=== PATIENT | male | born 1945 | race Caucasian/White ===

== ENCOUNTER 2017-09-03 08:09 | Inpatient (IN) | payer OTHER, MEDICAID ==
[~2017-09-03] VITALS: Ht 182.9 cm; Wt 68.0 kg
[2017-09-03] VITALS (17 sets, daily range): BP systolic 92–144
[2017-09-03] MEDS ORDERED: NS 1000 ML BAG IV ONE (08:15)
[2017-09-03] MEDS ORDERED: VANCOMYCIN HCL 1,000 MG in D5W 250 ML IV ONE (08:15)
[2017-09-03] MEDS ORDERED: PIPERACILLIN/TAZO 3.38 GM in D5W 50 ML IV ONE (08:15)
[2017-09-03] MEDS ORDERED: ASPIRIN 300 MG/SUPP.RECT SUPP RC ONE (08:30)
[2017-09-03 09:26] LABS: CALCIUM 9.5 mg/dL (8.4-11.0); CREATININE 0.75 mg/dL (0.55-1.30); POTASSIUM 5.1 mmol/L (3.5-5.1)
[2017-09-03 09:31] LABS: ALBUMIN 1.4 g/dL (3.4-4.8); TOTAL BILIRUBIN 0.2 mg/dL (0.0-1.0)
[2017-09-03 09:39] LABS: WHITE BLOOD COUNT (AUTO) 19.5 K/uL (4.8-10.8)
[2017-09-03 09:40] LABS: HEMATOCRIT 31.7 % (36-54); HEMOGLOBIN 10.1 g/dL (14.0-18.0); MEAN CORPUSCULAR HEMOGLOBIN 27 pg (27-31); MEAN CORPUSCULAR HGB CONC 32 % (32-36); MEAN CORPUSCULAR VOLUME 85 fL (79.0-98.0); RED BLOOD CELL COUNT(AUTO) 3.72 MIL/uL (4.2-6.2); RED CELL DISTRIBUTION WIDTH 15.9 % (9.0-15.0)
[2017-09-03 09:41] LABS: PLATELET COUNT (AUTO) 500 K/uL (130-430)
[2017-09-03 09:47] LABS: PROTHROMBIN TIME 10.3 SECS (9.5-12.5)
[2017-09-03 10:06] LABS: BAND % (MANUAL) 3 % (0-6); BASOPHILS % (MANUAL) 0 % (0-2); EOSINOPHILS % (MANUAL) 0 % (0-7); LYMPHOCYTES % (MANUAL) 2 % (20-46); MONOCYTES % (MANUAL) 2 % (0-11)
[2017-09-03] MEDS ORDERED: VANCOMYCIN HCL 1000 MG/VIAL IV ONE (10:57)
[2017-09-03] MEDS ORDERED: PIPERACILLIN/TAZOBACTAM 3.375 GM/VIAL (ZOSYN) IV ONE (11:28)
[2017-09-03] MEDS ORDERED: HYD10 PO (12:10)
[2017-09-03] MEDS ORDERED: ENOX30DI4 SQ (12:10)
[2017-09-03] MEDS ORDERED: PSYL3.4P6 GT (12:10)
[2017-09-03] MEDS ORDERED: ARTT OP (12:12)
[2017-09-03] MEDS ORDERED: LOM2.5 PO (12:12)
[2017-09-03] MEDS ORDERED: L. A1CAP12 GT (12:13)
[2017-09-03] MEDS ORDERED: LevALBUTEROL HCL 1.25 MG/0.5 ML *CONC.* VIAL.NEB (XOPENEX CONC.) INH PRN (14:15)
[2017-09-03] MEDS: PSYLLIUM HUSK 1 PKT PACKET GT SCH ×2 (15:35→20:32)
[2017-09-03] MEDS: D5/0.45 NS 1,000 ML IV SCH (15:35)
[2017-09-03] MEDS: PIPERACILLIN/TAZO 3.375/DEX-IS 50 ML IV SCH ×2 (17:42→23:42)
[2017-09-03] MEDS: ACETAMINOPHEN 325 MG TABLET PO PRN (17:43)
[2017-09-03] MEDS: DIPHENOXYLATE HCL/ATROP SULF 2.5 MG TAB PO SCH ×2 (17:44→20:32)
[2017-09-03] MEDS: TEARS ARTIFICIAL 15 ML DROPS OP SCH ×2 (17:44→20:32)
[2017-09-03] MEDS: HYDROCORTISONE 10 MG TABLET (CORTEF) PO SCH (17:45)
[2017-09-03] MEDS: LevALBUTEROL HCL 1.25 MG/0.5 ML *CONC.* VIAL.NEB (XOPENEX CONC.) INH SCH (20:11)
[2017-09-03] MEDS: FLUCONAZOLE 100 mg/ NS 50 ML IV SCH (20:30)
[2017-09-04] VITALS (28 sets, daily range): BP systolic 90–129
[2017-09-04 00:25] LABS: BASOPHILS # (AUTO) 0.1 K/uL (0.0-0.2); BASOPHILS % (AUTO) 0.3 % (0.0-2.0); HEMATOCRIT 25.6 % (36-54); LYMPHOCYTES # (AUTO) 0.4 K/uL (1.0-5.5); LYMPHOCYTES % (AUTO) 2.5 % (20.5-51.5); MEAN CORPUSCULAR HEMOGLOBIN 27 pg (27-31); MEAN CORPUSCULAR HGB CONC 32 % (32-36); MEAN CORPUSCULAR VOLUME 83 fL (79.0-98.0); MONOCYTES # (AUTO) 0.6 K/uL (0.0-1.0); MONOCYTES % (AUTO) 3.8 % (1.7-9.3); NEUTROPHILS # (AUTO) 15.9 K/uL (1.8-7.7); NEUTROPHILS % (AUTO) 93.4 % (40.0-70.0); PLATELET COUNT (AUTO) 452 K/uL (130-430); RED BLOOD CELL COUNT(AUTO) 3.09 MIL/uL (4.2-6.2); RED CELL DISTRIBUTION WIDTH 16.2 % (9.0-15.0)
[2017-09-04 00:27] LABS: HEMOGLOBIN 8.3 g/dL (14.0-18.0)
[2017-09-04] MEDS: LevALBUTEROL HCL 1.25 MG/0.5 ML *CONC.* VIAL.NEB (XOPENEX CONC.) INH SCH ×4 (01:25→19:54)
[2017-09-04] MEDS: D5/0.45 NS 1,000 ML IV SCH ×2 (05:09→20:10)
[2017-09-04] MEDS: PIPERACILLIN/TAZO 3.375/DEX-IS 50 ML IV SCH ×4 (05:37→23:39)
[2017-09-04 06:10] LABS: BASOPHILS # (AUTO) 0.3 K/uL (0.0-0.2); BASOPHILS % (AUTO) 1.9 % (0.0-2.0); EOSINOPHILS % (AUTO) 0.3 % (0.0-4.0); HEMATOCRIT 26.3 % (36-54); HEMOGLOBIN 8.4 g/dL (14.0-18.0); LYMPHOCYTES # (AUTO) 0.7 K/uL (1.0-5.5); LYMPHOCYTES % (AUTO) 4.6 % (20.5-51.5); MEAN CORPUSCULAR HEMOGLOBIN 27 pg (27-31); MEAN CORPUSCULAR HGB CONC 32 % (32-36); MEAN CORPUSCULAR VOLUME 83 fL (79.0-98.0); MONOCYTES # (AUTO) 0.5 K/uL (0.0-1.0); MONOCYTES % (AUTO) 3.2 % (1.7-9.3); NEUTROPHILS # (AUTO) 14.7 K/uL (1.8-7.7); PLATELET COUNT (AUTO) 495 K/uL (130-430); RED BLOOD CELL COUNT(AUTO) 3.15 MIL/uL (4.2-6.2); RED CELL DISTRIBUTION WIDTH 16.3 % (9.0-15.0); WHITE BLOOD COUNT (AUTO) 16.2 K/uL (4.8-10.8)
[2017-09-04 06:13] LABS: CALCIUM 8.5 mg/dL (8.4-11.0); CREATININE 0.99 mg/dL (0.55-1.30); POTASSIUM 4.3 mmol/L (3.5-5.1)
[2017-09-04] MEDS: VANCOMYCIN HCL 1,000 MG in NS 250 ML IV SCH (09:44)
[2017-09-04] MEDS: TEARS ARTIFICIAL 15 ML DROPS OP SCH ×4 (09:44→20:21)
[2017-09-04] MEDS: DIPHENOXYLATE HCL/ATROP SULF 2.5 MG TAB PO SCH ×4 (09:44→20:21)
[2017-09-04] MEDS: ENOXAPARIN SODIUM 30 MG/0.3 ML SYRINGE SQ SCH (09:44)
[2017-09-04] MEDS: PSYLLIUM HUSK 1 PKT PACKET GT SCH ×3 (09:45→20:20)
[2017-09-04] MEDS: HYDROCORTISONE 10 MG TABLET (CORTEF) PO SCH ×2 (09:45→17:59)
[2017-09-04] MEDS ORDERED: DEXTROSE 50%-WATER 50 ML DISP.SYRIN IVP PRN ×2 (18:30)
[2017-09-04] MEDS ORDERED: GLUCOSE 15 GM GEL (in 37.5 GM TUBE) PO PRN ×2 (18:30)
[2017-09-04] MEDS: INSULIN REGULAR, HUMAN 100 UNITS/ML, 10 ML VIAL (novoLIN R) SUBCUT PRN (18:35)
[2017-09-04] MEDS: FLUCONAZOLE 100 mg/ NS 50 ML IV SCH (19:50)
[2017-09-04] MEDS: ACETAMINOPHEN 325 MG TABLET PO PRN (20:23)
[2017-09-05] VITALS (35 sets, daily range): BP systolic 87–159
[2017-09-05] MEDS: HYDROcodone/ACETAMIN 5-325 MG TAB (NORCO/ VICODIN) PO PRN (00:25)
[2017-09-05] MEDS: LevALBUTEROL HCL 1.25 MG/0.5 ML *CONC.* VIAL.NEB (XOPENEX CONC.) INH SCH ×4 (01:21→19:56)
[2017-09-05] MEDS: PIPERACILLIN/TAZO 3.375/DEX-IS 50 ML IV SCH ×4 (05:22→23:39)
[2017-09-05 06:17] LABS: BASOPHILS % (AUTO) 0.2 % (0.0-2.0); EOSINOPHILS % (AUTO) 0.4 % (0.0-4.0); LYMPHOCYTES # (AUTO) 0.7 K/uL (1.0-5.5); LYMPHOCYTES % (AUTO) 5.8 % (20.5-51.5); MEAN CORPUSCULAR HEMOGLOBIN 28 pg (27-31); MEAN CORPUSCULAR HGB CONC 34 % (32-36); MEAN CORPUSCULAR VOLUME 82 fL (79.0-98.0); MONOCYTES # (AUTO) 0.5 K/uL (0.0-1.0); MONOCYTES % (AUTO) 4.3 % (1.7-9.3); NEUTROPHILS # (AUTO) 10.9 K/uL (1.8-7.7); NEUTROPHILS % (AUTO) 89.3 % (40.0-70.0); PLATELET COUNT (AUTO) 323 K/uL (130-430); RED BLOOD CELL COUNT(AUTO) 2.47 MIL/uL (4.2-6.2); RED CELL DISTRIBUTION WIDTH 16.3 % (9.0-15.0); WHITE BLOOD COUNT (AUTO) 12.1 K/uL (4.8-10.8)
[2017-09-05 06:26] LABS: HEMATOCRIT 20.2 % (36-54); HEMOGLOBIN 6.9 g/dL (14.0-18.0)
[2017-09-05 07:05] LABS: CALCIUM 7.3 mg/dL (8.4-11.0); CREATININE 1.02 mg/dL (0.55-1.30); POTASSIUM 3.9 mmol/L (3.5-5.1); TOTAL BILIRUBIN 0.2 mg/dL (0.0-1.0)
[2017-09-05] MEDS: DIPHENOXYLATE HCL/ATROP SULF 2.5 MG TAB PO SCH ×4 (08:31→20:07)
[2017-09-05] MEDS: PSYLLIUM HUSK 1 PKT PACKET GT SCH ×3 (08:34→20:06)
[2017-09-05] MEDS: VANCOMYCIN HCL 1,000 MG in NS 250 ML IV SCH (08:34)
[2017-09-05] MEDS: HYDROCORTISONE 10 MG TABLET (CORTEF) PO SCH ×2 (08:34→18:09)
[2017-09-05] MEDS: TEARS ARTIFICIAL 15 ML DROPS OP SCH ×4 (08:36→20:06)
[2017-09-05] MEDS: ENOXAPARIN SODIUM 30 MG/0.3 ML SYRINGE SQ SCH (08:36)
[2017-09-05] MEDS ORDERED: FUROSEMIDE 20 MG/2 ML VIAL IVP ONE (13:30)
[2017-09-05] MEDS: D5/0.45 NS 1,000 ML IV SCH (16:29)
[2017-09-05] MEDS: INSULIN REGULAR, HUMAN 100 UNITS/ML, 10 ML VIAL (novoLIN R) SUBCUT PRN (18:13)
[2017-09-05] MEDS: FLUCONAZOLE 100 mg/ NS 50 ML IV SCH (18:53)
[2017-09-06] VITALS (31 sets, daily range): BP systolic 93–162
[2017-09-06] MEDS: LevALBUTEROL HCL 1.25 MG/0.5 ML *CONC.* VIAL.NEB (XOPENEX CONC.) INH SCH ×4 (00:03→20:29)
[2017-09-06] MEDS ORDERED: LORazepam 2 MG/ML VIAL IVP PRN (02:00)
[2017-09-06] MEDS ORDERED: LORazepam 2 MG/ML VIAL ONE (02:14)
[2017-09-06] MEDS: PIPERACILLIN/TAZO 3.375/DEX-IS 50 ML IV SCH ×3 (05:31→17:38)
[2017-09-06 06:21] LABS: CALCIUM 8.7 mg/dL (8.4-11.0); CREATININE 0.99 mg/dL (0.55-1.30); POTASSIUM 4.5 mmol/L (3.5-5.1)
[2017-09-06 06:24] LABS: BASOPHILS % (AUTO) 0.3 % (0.0-2.0); EOSINOPHILS # (AUTO) 0.1 K/uL (0.0-0.4); EOSINOPHILS % (AUTO) 0.9 % (0.0-4.0); HEMATOCRIT 34.4 % (36-54); HEMOGLOBIN 11.5 g/dL (14.0-18.0); LYMPHOCYTES # (AUTO) 0.7 K/uL (1.0-5.5); LYMPHOCYTES % (AUTO) 4.2 % (20.5-51.5); MEAN CORPUSCULAR HEMOGLOBIN 28 pg (27-31); MEAN CORPUSCULAR HGB CONC 33 % (32-36); MEAN CORPUSCULAR VOLUME 83 fL (79.0-98.0); MONOCYTES # (AUTO) 0.9 K/uL (0.0-1.0); MONOCYTES % (AUTO) 5.3 % (1.7-9.3); NEUTROPHILS # (AUTO) 14.4 K/uL (1.8-7.7); NEUTROPHILS % (AUTO) 89.3 % (40.0-70.0); PLATELET COUNT (AUTO) 396 K/uL (130-430); RED BLOOD CELL COUNT(AUTO) 4.17 MIL/uL (4.2-6.2); RED CELL DISTRIBUTION WIDTH 15.9 % (9.0-15.0); WHITE BLOOD COUNT (AUTO) 16.1 K/uL (4.8-10.8)
[2017-09-06 06:52] LABS: TOTAL IRON BIND. CAPACITY 156 ug/dL (250-450)
[2017-09-06] MEDS: DIPHENOXYLATE HCL/ATROP SULF 2.5 MG TAB PO SCH ×4 (08:40→21:22)
[2017-09-06] MEDS: HYDROCORTISONE 10 MG TABLET (CORTEF) PO SCH ×2 (08:40→18:23)
[2017-09-06] MEDS: PSYLLIUM HUSK 1 PKT PACKET GT SCH ×3 (08:40→21:22)
[2017-09-06] MEDS: ENOXAPARIN SODIUM 30 MG/0.3 ML SYRINGE SQ SCH (08:41)
[2017-09-06] MEDS: TEARS ARTIFICIAL 15 ML DROPS OP SCH ×4 (08:50→21:23)
[2017-09-06] MEDS: INSULIN REGULAR, HUMAN 100 UNITS/ML, 10 ML VIAL (novoLIN R) SUBCUT PRN (17:37)
[2017-09-06] MEDS: FLUCONAZOLE 100 mg/ NS 50 ML IV SCH (18:24)
[2017-09-06] MEDS: D5/0.45 NS 1,000 ML IV SCH (21:23)
[2017-09-07] MEDS: PIPERACILLIN/TAZO 3.375/DEX-IS 50 ML IV SCH ×2 (00:33→06:15)
[2017-09-07] MEDS: LevALBUTEROL HCL 1.25 MG/0.5 ML *CONC.* VIAL.NEB (XOPENEX CONC.) INH SCH ×4 (00:50→19:35)
[2017-09-07 00:52] VITALS: BP_SYST 133
[2017-09-07 06:20] LABS: BASOPHILS % (AUTO) 0.2 % (0.0-2.0); EOSINOPHILS # (AUTO) 0.1 K/uL (0.0-0.4); EOSINOPHILS % (AUTO) 0.6 % (0.0-4.0); HEMATOCRIT 28.5 % (36-54); HEMOGLOBIN 9.7 g/dL (14.0-18.0); LYMPHOCYTES # (AUTO) 0.5 K/uL (1.0-5.5); LYMPHOCYTES % (AUTO) 4.4 % (20.5-51.5); MEAN CORPUSCULAR HEMOGLOBIN 28 pg (27-31); MEAN CORPUSCULAR HGB CONC 34 % (32-36); MEAN CORPUSCULAR VOLUME 82 fL (79.0-98.0); MONOCYTES # (AUTO) 0.7 K/uL (0.0-1.0); MONOCYTES % (AUTO) 5.9 % (1.7-9.3); NEUTROPHILS # (AUTO) 10.3 K/uL (1.8-7.7); NEUTROPHILS % (AUTO) 88.9 % (40.0-70.0); PLATELET COUNT (AUTO) 281 K/uL (130-430); RED BLOOD CELL COUNT(AUTO) 3.46 MIL/uL (4.2-6.2); RED CELL DISTRIBUTION WIDTH 15.4 % (9.0-15.0); WHITE BLOOD COUNT (AUTO) 11.6 K/uL (4.8-10.8)
[2017-09-07 07:01] LABS: CALCIUM 8.3 mg/dL (8.4-11.0); CREATININE 0.98 mg/dL (0.55-1.30); POTASSIUM 4.5 mmol/L (3.5-5.1)
[2017-09-07 08:35] VITALS: BP_SYST 126
[2017-09-07] MEDS: DIPHENOXYLATE HCL/ATROP SULF 2.5 MG TAB PO SCH ×4 (10:01→22:16)
[2017-09-07] MEDS: PSYLLIUM HUSK 1 PKT PACKET GT SCH ×3 (10:01→22:16)
[2017-09-07] MEDS: HYDROCORTISONE 10 MG TABLET (CORTEF) PO SCH ×2 (10:01→17:57)
[2017-09-07] MEDS: ENOXAPARIN SODIUM 30 MG/0.3 ML SYRINGE SQ SCH (10:02)
[2017-09-07] MEDS: TEARS ARTIFICIAL 15 ML DROPS OP SCH ×4 (10:02→22:17)
[2017-09-07] MEDS: HYDROcodone/ACETAMIN 5-325 MG TAB (NORCO/ VICODIN) PO PRN (10:46)
[2017-09-07 12:20] VITALS: BP_SYST 129
[2017-09-07 16:50] VITALS: BP_SYST 125
[2017-09-07] MEDS: FLUCONAZOLE 100 mg/ NS 50 ML IV SCH (18:18)
[2017-09-07 19:00] VITALS: BP_SYST 139
[2017-09-07 20:00] VITALS: BP_SYST 139
[2017-09-07] MEDS: D5/0.45 NS 1,000 ML IV SCH (22:18)
[2017-09-08] VITALS: BP_SYST 140
[2017-09-08] MEDS: LevALBUTEROL HCL 1.25 MG/0.5 ML *CONC.* VIAL.NEB (XOPENEX CONC.) INH SCH ×4 (00:45→19:47)
[2017-09-08 07:05] LABS: BASOPHILS % (AUTO) 0.1 % (0.0-2.0); EOSINOPHILS # (AUTO) 0.1 K/uL (0.0-0.4); EOSINOPHILS % (AUTO) 0.7 % (0.0-4.0); HEMATOCRIT 31.1 % (36-54); HEMOGLOBIN 10.1 g/dL (14.0-18.0); LYMPHOCYTES # (AUTO) 0.7 K/uL (1.0-5.5); LYMPHOCYTES % (AUTO) 5.3 % (20.5-51.5); MEAN CORPUSCULAR HEMOGLOBIN 27 pg (27-31); MEAN CORPUSCULAR HGB CONC 33 % (32-36); MEAN CORPUSCULAR VOLUME 82 fL (79.0-98.0); MONOCYTES # (AUTO) 0.8 K/uL (0.0-1.0); MONOCYTES % (AUTO) 5.9 % (1.7-9.3); NEUTROPHILS # (AUTO) 12.3 K/uL (1.8-7.7); PLATELET COUNT (AUTO) 330 K/uL (130-430); RED BLOOD CELL COUNT(AUTO) 3.81 MIL/uL (4.2-6.2); RED CELL DISTRIBUTION WIDTH 15.6 % (9.0-15.0); WHITE BLOOD COUNT (AUTO) 13.9 K/uL (4.8-10.8)
[2017-09-08 07:16] LABS: ALBUMIN 1.2 g/dL (3.4-4.8); CALCIUM 8.5 mg/dL (8.4-11.0); CREATININE 0.89 mg/dL (0.55-1.30); POTASSIUM 4.1 mmol/L (3.5-5.1); TOTAL BILIRUBIN 0.3 mg/dL (0.0-1.0)
[2017-09-08] MEDS: ENOXAPARIN SODIUM 30 MG/0.3 ML SYRINGE SQ SCH (09:45)
[2017-09-08] MEDS: DIPHENOXYLATE HCL/ATROP SULF 2.5 MG TAB PO SCH ×4 (09:46→21:55)
[2017-09-08] MEDS: HYDROCORTISONE 10 MG TABLET (CORTEF) PO SCH ×2 (09:46→18:27)
[2017-09-08] MEDS: PSYLLIUM HUSK 1 PKT PACKET GT SCH ×3 (09:46→21:55)
[2017-09-08] MEDS: TEARS ARTIFICIAL 15 ML DROPS OP SCH ×4 (09:46→21:55)
[2017-09-08 12:45] VITALS: BP_SYST 140
[2017-09-08 15:25] VITALS: BP_SYST 129
[2017-09-08] MEDS: FLUCONAZOLE 100 mg/ NS 50 ML IV SCH (18:27)
[2017-09-08 20:52] VITALS: BP_SYST 136
[2017-09-08] MEDS: D5/0.45 NS 1,000 ML IV SCH (21:56)
[2017-09-09 00:03] VITALS: BP_SYST 156
[2017-09-09] MEDS: INSULIN REGULAR, HUMAN 100 UNITS/ML, 10 ML VIAL (novoLIN R) SUBCUT PRN ×4 (00:33→23:22)
[2017-09-09] MEDS: LevALBUTEROL HCL 1.25 MG/0.5 ML *CONC.* VIAL.NEB (XOPENEX CONC.) INH SCH ×4 (00:50→20:16)
[2017-09-09 05:06] LABS: FOLATE (FOLIC ACID) 9.1 ng/mL (>3.0)
[2017-09-09 07:38] LABS: HEMATOCRIT 32.8 % (36-54); HEMOGLOBIN 10.8 g/dL (14.0-18.0); MEAN CORPUSCULAR HEMOGLOBIN 27 pg (27-31); MEAN CORPUSCULAR HGB CONC 33 % (32-36); MEAN CORPUSCULAR VOLUME 82 fL (79.0-98.0); PLATELET COUNT (AUTO) 363 K/uL (130-430); RED BLOOD CELL COUNT(AUTO) 3.99 MIL/uL (4.2-6.2); RED CELL DISTRIBUTION WIDTH 15.3 % (9.0-15.0); WHITE BLOOD COUNT (AUTO) 29.1 K/uL (4.8-10.8)
[2017-09-09 08:00] VITALS: BP_SYST 162
[2017-09-09 08:25] LABS: CALCIUM 8.7 mg/dL (8.4-11.0); CREATININE 0.94 mg/dL (0.55-1.30); POTASSIUM 3.9 mmol/L (3.5-5.1)
[2017-09-09] MEDS: ENOXAPARIN SODIUM 30 MG/0.3 ML SYRINGE SQ SCH (08:34)
[2017-09-09] MEDS: ACETAMINOPHEN 325 MG TABLET PO PRN (08:35)
[2017-09-09] MEDS: DIPHENOXYLATE HCL/ATROP SULF 2.5 MG TAB PO SCH ×4 (08:35→21:21)
[2017-09-09] MEDS: PSYLLIUM HUSK 1 PKT PACKET GT SCH ×3 (08:36→21:21)
[2017-09-09] MEDS: HYDROCORTISONE 10 MG TABLET (CORTEF) PO SCH ×2 (08:36→17:50)
[2017-09-09] MEDS: TEARS ARTIFICIAL 15 ML DROPS OP SCH ×4 (08:36→21:21)
[2017-09-09 09:14] VITALS: BP_SYST 162
[2017-09-09 12:30] VITALS: BP_SYST 157
[2017-09-09 14:13] LABS: BAND % (MANUAL) 13 % (0-6); BASOPHILS % (MANUAL) 0 % (0-2); EOSINOPHILS % (MANUAL) 0 % (0-7); LYMPHOCYTES % (MANUAL) 4 % (20-46); MONOCYTES % (MANUAL) 1 % (0-11)
[2017-09-09 15:22] VITALS: BP_SYST 146
[2017-09-09] MEDS: FLUCONAZOLE 100 mg/ NS 50 ML IV SCH (18:28)
[2017-09-09 19:31] LABS: BILIRUBIN,URINE NEGATIVE (NEGATIVE); BLOOD, URINE 2+ (NEGATIVE); CLARITY/URINE HAZY (CLEAR); COLOR,URINE YELLOW (YELLOW); GLUCOSE,URINE TRACE (NEGATIVE); KETONES,URINE NEGATIVE (NEGATIVE); LEUKOCYTE ESTERASE ,URINE 2+ (NEGATIVE); NITRITE, URINE NEGATIVE (NEGATIVE); PROTEIN URINE 1+ (NEGATIVE); UROBILINOGEN,URINE 0.2 (0.2-1.0)
[2017-09-09] MEDS: SULFAMETHOXAZOLE /TRIMETHOPRIM 10 ML in D5W 250 ML IV SCH (21:21)
[2017-09-09 21:27] LABS: RBC,URINE 50-80 /HPF (0-3); WBC,URINE >100 /HPF (0-3)
[2017-09-09 21:28] LABS: BACTERIA,URINE FEW /HPF (None Seen); YEAST,URINE Few /HPF (None Seen)
[2017-09-10] MEDS: ACETAMINOPHEN 325 MG TABLET PO PRN (00:02)
[2017-09-10 01:20] VITALS: BP_SYST 144
[2017-09-10] MEDS: LevALBUTEROL HCL 1.25 MG/0.5 ML *CONC.* VIAL.NEB (XOPENEX CONC.) INH SCH ×4 (01:21→19:54)
[2017-09-10] MEDS: SULFAMETHOXAZOLE /TRIMETHOPRIM 10 ML in D5W 250 ML IV SCH ×3 (06:54→22:14)
[2017-09-10 07:20] LABS: HEMATOCRIT 28.7 % (36-54); HEMOGLOBIN 9.7 g/dL (14.0-18.0); MEAN CORPUSCULAR HEMOGLOBIN 28 pg (27-31); MEAN CORPUSCULAR HGB CONC 34 % (32-36); MEAN CORPUSCULAR VOLUME 81 fL (79.0-98.0); PLATELET COUNT (AUTO) 246 K/uL (130-430); RED BLOOD CELL COUNT(AUTO) 3.53 MIL/uL (4.2-6.2); RED CELL DISTRIBUTION WIDTH 15.6 % (9.0-15.0); WHITE BLOOD COUNT (AUTO) 24.9 K/uL (4.8-10.8)
[2017-09-10 07:46] LABS: CALCIUM 8.9 mg/dL (8.4-11.0); CREATININE 0.88 mg/dL (0.55-1.30); POTASSIUM 3.7 mmol/L (3.5-5.1)
[2017-09-10 08:00] VITALS: BP_SYST 133
[2017-09-10] MEDS: ENOXAPARIN SODIUM 30 MG/0.3 ML SYRINGE SQ SCH (09:25)
[2017-09-10] MEDS: PSYLLIUM HUSK 1 PKT PACKET GT SCH ×3 (09:26→22:14)
[2017-09-10] MEDS: HYDROCORTISONE 10 MG TABLET (CORTEF) PO SCH ×2 (09:26→17:42)
[2017-09-10] MEDS: DIPHENOXYLATE HCL/ATROP SULF 2.5 MG TAB PO SCH ×3 (09:26→16:12)
[2017-09-10 09:32] LABS: BAND % (MANUAL) 20 % (0-6); BASOPHILS % (MANUAL) 0 % (0-2); EOSINOPHILS % (MANUAL) 0 % (0-7); LYMPHOCYTES % (MANUAL) 4 % (20-46); MONOCYTES % (MANUAL) 6 % (0-11)
[2017-09-10] MEDS: TEARS ARTIFICIAL 15 ML DROPS OP SCH ×4 (09:38→22:14)
[2017-09-10 11:31] VITALS: BP_SYST 135
[2017-09-10 15:17] VITALS: BP_SYST 117
[2017-09-10] MEDS: FLUCONAZOLE 100 mg/ NS 50 ML IV SCH (18:02)
[2017-09-10 23:00] VITALS: BP_SYST 120
[2017-09-11 01:09] VITALS: BP_SYST 120
[2017-09-11] MEDS: LevALBUTEROL HCL 1.25 MG/0.5 ML *CONC.* VIAL.NEB (XOPENEX CONC.) INH SCH ×4 (01:37→20:24)
[2017-09-11] MEDS: SULFAMETHOXAZOLE /TRIMETHOPRIM 10 ML in D5W 250 ML IV SCH ×3 (05:46→22:33)
[2017-09-11 06:58] LABS: BASOPHILS % (AUTO) 0.1 % (0.0-2.0); EOSINOPHILS # (AUTO) 0.1 K/uL (0.0-0.4); EOSINOPHILS % (AUTO) 0.3 % (0.0-4.0); HEMATOCRIT 25.1 % (36-54); HEMOGLOBIN 8.5 g/dL (14.0-18.0); LYMPHOCYTES # (AUTO) 0.6 K/uL (1.0-5.5); LYMPHOCYTES % (AUTO) 2.8 % (20.5-51.5); MEAN CORPUSCULAR HEMOGLOBIN 28 pg (27-31); MEAN CORPUSCULAR HGB CONC 34 % (32-36); MEAN CORPUSCULAR VOLUME 82 fL (79.0-98.0); MONOCYTES # (AUTO) 0.8 K/uL (0.0-1.0); MONOCYTES % (AUTO) 3.8 % (1.7-9.3); NEUTROPHILS # (AUTO) 18.8 K/uL (1.8-7.7); PLATELET COUNT (AUTO) 232 K/uL (130-430); RED BLOOD CELL COUNT(AUTO) 3.06 MIL/uL (4.2-6.2); RED CELL DISTRIBUTION WIDTH 15.4 % (9.0-15.0); WHITE BLOOD COUNT (AUTO) 20.3 K/uL (4.8-10.8)
[2017-09-11 07:32] LABS: CALCIUM 8.8 mg/dL (8.4-11.0); CREATININE 0.78 mg/dL (0.55-1.30); POTASSIUM 3.6 mmol/L (3.5-5.1)
[2017-09-11 07:50] VITALS: BP_SYST 111
[2017-09-11] MEDS: PSYLLIUM HUSK 1 PKT PACKET GT SCH ×3 (08:37→22:33)
[2017-09-11] MEDS: TEARS ARTIFICIAL 15 ML DROPS OP SCH ×4 (08:39→22:34)
[2017-09-11] MEDS: ENOXAPARIN SODIUM 30 MG/0.3 ML SYRINGE SQ SCH (08:39)
[2017-09-11] MEDS: HYDROCORTISONE 10 MG TABLET (CORTEF) PO SCH ×2 (08:39→18:07)
[2017-09-11 12:00] VITALS: BP_SYST 140
[2017-09-11] MEDS ORDERED: FUROSEMIDE 40 MG/4 ML VIAL IVP ONE (15:00)
[2017-09-11 16:00] VITALS: BP_SYST 147
[2017-09-11] MEDS ORDERED: DIPHENOXYLATE HCL/ATROP SULF 2.5 MG TAB PO SCH (17:00)
[2017-09-11 17:05] VITALS: BP_SYST 147
[2017-09-11] MEDS: FLUCONAZOLE 100 mg/ NS 50 ML IV SCH (18:07)
[2017-09-11 20:42] VITALS: BP_SYST 137
[2017-09-12 00:31] VITALS: BP_SYST 102
[2017-09-12] MEDS: LevALBUTEROL HCL 1.25 MG/0.5 ML *CONC.* VIAL.NEB (XOPENEX CONC.) INH SCH ×4 (02:10→19:51)
[2017-09-12] MEDS: SULFAMETHOXAZOLE /TRIMETHOPRIM 10 ML in D5W 250 ML IV SCH ×3 (06:46→21:54)
[2017-09-12 06:58] LABS: BASOPHILS % (AUTO) 0.1 % (0.0-2.0); EOSINOPHILS # (AUTO) 0.1 K/uL (0.0-0.4); EOSINOPHILS % (AUTO) 0.6 % (0.0-4.0); HEMATOCRIT 27.8 % (36-54); HEMOGLOBIN 9.5 g/dL (14.0-18.0); LYMPHOCYTES # (AUTO) 0.7 K/uL (1.0-5.5); LYMPHOCYTES % (AUTO) 3.8 % (20.5-51.5); MEAN CORPUSCULAR HEMOGLOBIN 28 pg (27-31); MEAN CORPUSCULAR HGB CONC 34 % (32-36); MEAN CORPUSCULAR VOLUME 81 fL (79.0-98.0); MONOCYTES # (AUTO) 0.7 K/uL (0.0-1.0); MONOCYTES % (AUTO) 3.8 % (1.7-9.3); NEUTROPHILS # (AUTO) 17.1 K/uL (1.8-7.7); NEUTROPHILS % (AUTO) 91.7 % (40.0-70.0); PLATELET COUNT (AUTO) 256 K/uL (130-430); RED BLOOD CELL COUNT(AUTO) 3.43 MIL/uL (4.2-6.2); RED CELL DISTRIBUTION WIDTH 15.2 % (9.0-15.0); WHITE BLOOD COUNT (AUTO) 18.6 K/uL (4.8-10.8)
[2017-09-12 07:17] LABS: CALCIUM 8.4 mg/dL (8.4-11.0); CREATININE 0.86 mg/dL (0.55-1.30); POTASSIUM 3.6 mmol/L (3.5-5.1); TOTAL BILIRUBIN 0.2 mg/dL (0.0-1.0)
[2017-09-12 07:57] VITALS: BP_SYST 130
[2017-09-12] MEDS: PSYLLIUM HUSK 1 PKT PACKET GT SCH ×3 (08:59→21:55)
[2017-09-12] MEDS: HYDROCORTISONE 10 MG TABLET (CORTEF) PO SCH ×2 (08:59→17:50)
[2017-09-12] MEDS: ENOXAPARIN SODIUM 30 MG/0.3 ML SYRINGE SQ SCH (09:00)
[2017-09-12] MEDS: TEARS ARTIFICIAL 15 ML DROPS OP SCH ×4 (09:01→21:55)
[2017-09-12 11:20] VITALS: BP_SYST 140
[2017-09-12 15:40] VITALS: BP_SYST 157
[2017-09-12] MEDS: FLUCONAZOLE 100 mg/ NS 50 ML IV SCH (18:01)
[2017-09-13 00:52] VITALS: BP_SYST 116
[2017-09-13] MEDS: LevALBUTEROL HCL 1.25 MG/0.5 ML *CONC.* VIAL.NEB (XOPENEX CONC.) INH SCH ×4 (01:03→19:38)
[2017-09-13] MEDS: SULFAMETHOXAZOLE /TRIMETHOPRIM 10 ML in D5W 250 ML IV SCH ×3 (05:36→21:10)
[2017-09-13 06:22] LABS: EOSINOPHILS # (AUTO) 0.1 K/uL (0.0-0.4); EOSINOPHILS % (AUTO) 0.8 % (0.0-4.0); HEMATOCRIT 27.5 % (36-54); HEMOGLOBIN 9.3 g/dL (14.0-18.0); LYMPHOCYTES # (AUTO) 0.6 K/uL (1.0-5.5); LYMPHOCYTES % (AUTO) 3.3 % (20.5-51.5); MEAN CORPUSCULAR HEMOGLOBIN 27 pg (27-31); MEAN CORPUSCULAR HGB CONC 34 % (32-36); MEAN CORPUSCULAR VOLUME 81 fL (79.0-98.0); MONOCYTES # (AUTO) 0.6 K/uL (0.0-1.0); MONOCYTES % (AUTO) 3.4 % (1.7-9.3); NEUTROPHILS # (AUTO) 15.9 K/uL (1.8-7.7); NEUTROPHILS % (AUTO) 92.5 % (40.0-70.0); PLATELET COUNT (AUTO) 266 K/uL (130-430); RED CELL DISTRIBUTION WIDTH 15.1 % (9.0-15.0); WHITE BLOOD COUNT (AUTO) 17.2 K/uL (4.8-10.8)
[2017-09-13 06:32] LABS: POTASSIUM 4.1 mmol/L (3.5-5.1)
[2017-09-13 06:33] LABS: CALCIUM 8.7 mg/dL (8.4-11.0); CREATININE 0.81 mg/dL (0.55-1.30)
[2017-09-13 09:19] VITALS: BP_SYST 146
[2017-09-13] MEDS: PSYLLIUM HUSK 1 PKT PACKET GT SCH ×3 (09:22→21:10)
[2017-09-13] MEDS: HYDROCORTISONE 10 MG TABLET (CORTEF) PO SCH ×2 (09:23→17:47)
[2017-09-13] MEDS: TEARS ARTIFICIAL 15 ML DROPS OP SCH ×4 (09:24→21:11)
[2017-09-13] MEDS: ENOXAPARIN SODIUM 30 MG/0.3 ML SYRINGE SQ SCH (09:25)
[2017-09-13 11:12] VITALS: BP_SYST 148
[2017-09-13 15:36] VITALS: BP_SYST 138
[2017-09-13] MEDS: FLUCONAZOLE 100 mg/ NS 50 ML IV SCH (18:08)
[2017-09-14 00:30] VITALS: BP_SYST 124
[2017-09-14] MEDS: LevALBUTEROL HCL 1.25 MG/0.5 ML *CONC.* VIAL.NEB (XOPENEX CONC.) INH SCH ×4 (01:17→19:55)
[2017-09-14] MEDS: SULFAMETHOXAZOLE /TRIMETHOPRIM 10 ML in D5W 250 ML IV SCH ×3 (05:51→21:08)
[2017-09-14 09:00] VITALS: BP_SYST 139
[2017-09-14] MEDS: PSYLLIUM HUSK 1 PKT PACKET GT SCH ×3 (09:40→21:07)
[2017-09-14] MEDS: ENOXAPARIN SODIUM 30 MG/0.3 ML SYRINGE SQ SCH (09:40)
[2017-09-14] MEDS: HYDROCORTISONE 10 MG TABLET (CORTEF) PO SCH ×2 (09:40→17:35)
[2017-09-14] MEDS: TEARS ARTIFICIAL 15 ML DROPS OP SCH ×4 (09:42→21:07)
[2017-09-14 11:15] VITALS: BP_SYST 147
[2017-09-14 12:11] VITALS: BP_SYST 147
[2017-09-14 17:18] VITALS: BP_SYST 144
[2017-09-14 19:52] VITALS: BP_SYST 151
[2017-09-15] VITALS (8 sets, daily range): BP systolic 108–144
[2017-09-15] MEDS: LevALBUTEROL HCL 1.25 MG/0.5 ML *CONC.* VIAL.NEB (XOPENEX CONC.) INH SCH ×4 (01:05→19:36)
[2017-09-15] MEDS: SULFAMETHOXAZOLE /TRIMETHOPRIM 10 ML in D5W 250 ML IV SCH ×3 (05:26→22:25)
[2017-09-15 08:31] LABS: BASOPHILS % (AUTO) 0.2 % (0.0-2.0); EOSINOPHILS % (AUTO) 0.2 % (0.0-4.0); HEMATOCRIT 28.8 % (36-54); HEMOGLOBIN 9.5 g/dL (14.0-18.0); LYMPHOCYTES # (AUTO) 0.8 K/uL (1.0-5.5); LYMPHOCYTES % (AUTO) 3.3 % (20.5-51.5); MEAN CORPUSCULAR HEMOGLOBIN 27 pg (27-31); MEAN CORPUSCULAR HGB CONC 33 % (32-36); MEAN CORPUSCULAR VOLUME 82 fL (79.0-98.0); MONOCYTES % (AUTO) 4.3 % (1.7-9.3); NEUTROPHILS # (AUTO) 21.1 K/uL (1.8-7.7); PLATELET COUNT (AUTO) 289 K/uL (130-430); RED BLOOD CELL COUNT(AUTO) 3.53 MIL/uL (4.2-6.2); RED CELL DISTRIBUTION WIDTH 15.8 % (9.0-15.0); WHITE BLOOD COUNT (AUTO) 22.9 K/uL (4.8-10.8)
[2017-09-15] MEDS: PSYLLIUM HUSK 1 PKT PACKET GT SCH ×3 (08:34→22:23)
[2017-09-15] MEDS: HYDROCORTISONE 10 MG TABLET (CORTEF) PO SCH ×2 (08:34→17:32)
[2017-09-15] MEDS: ENOXAPARIN SODIUM 30 MG/0.3 ML SYRINGE SQ SCH (08:35)
[2017-09-15] MEDS: TEARS ARTIFICIAL 15 ML DROPS OP SCH ×4 (08:36→22:24)
[2017-09-15 08:50] LABS: CALCIUM 9.2 mg/dL (8.4-11.0); CREATININE 0.76 mg/dL (0.55-1.30); POTASSIUM 4.8 mmol/L (3.5-5.1)
[2017-09-15] MEDS: INSULIN REGULAR, HUMAN 100 UNITS/ML, 10 ML VIAL (novoLIN R) SUBCUT PRN ×2 (11:18→17:37)
[2017-09-15] MEDS: PIPERACILLIN/TAZO 2.25G/DEX-IS 50 ML IV SCH ×3 (11:55→23:19)
[2017-09-16] MEDS: LevALBUTEROL HCL 1.25 MG/0.5 ML *CONC.* VIAL.NEB (XOPENEX CONC.) INH SCH ×2 (00:45→07:16)
[2017-09-16] MEDS: PIPERACILLIN/TAZO 2.25G/DEX-IS 50 ML IV SCH (06:28)
[2017-09-16] MEDS: SULFAMETHOXAZOLE /TRIMETHOPRIM 10 ML in D5W 250 ML IV SCH (06:28)
[2017-09-16 06:56] LABS: BASOPHILS % (AUTO) 0.1 % (0.0-2.0); CALCIUM 8.9 mg/dL (8.4-11.0); CREATININE 0.71 mg/dL (0.55-1.30); EOSINOPHILS # (AUTO) 0.1 K/uL (0.0-0.4); EOSINOPHILS % (AUTO) 0.4 % (0.0-4.0); HEMATOCRIT 32.1 % (36-54); HEMOGLOBIN 10.6 g/dL (14.0-18.0); LYMPHOCYTES # (AUTO) 0.7 K/uL (1.0-5.5); LYMPHOCYTES % (AUTO) 2.7 % (20.5-51.5); MEAN CORPUSCULAR HEMOGLOBIN 27 pg (27-31); MEAN CORPUSCULAR HGB CONC 33 % (32-36); MEAN CORPUSCULAR VOLUME 82 fL (79.0-98.0); MONOCYTES # (AUTO) 0.9 K/uL (0.0-1.0); MONOCYTES % (AUTO) 3.4 % (1.7-9.3); NEUTROPHILS # (AUTO) 23.4 K/uL (1.8-7.7); NEUTROPHILS % (AUTO) 93.4 % (40.0-70.0); PLATELET COUNT (AUTO) 339 K/uL (130-430); POTASSIUM 4.9 mmol/L (3.5-5.1); RED BLOOD CELL COUNT(AUTO) 3.92 MIL/uL (4.2-6.2); RED CELL DISTRIBUTION WIDTH 15.5 % (9.0-15.0); WHITE BLOOD COUNT (AUTO) 25.1 K/uL (4.8-10.8)
[2017-09-16 08:00] VITALS: BP_SYST 141
[2017-09-16] MEDS: ENOXAPARIN SODIUM 30 MG/0.3 ML SYRINGE SQ SCH (08:25)
[2017-09-16] MEDS: HYDROCORTISONE 10 MG TABLET (CORTEF) PO SCH (08:26)
[2017-09-16] MEDS: PSYLLIUM HUSK 1 PKT PACKET GT SCH (08:26)
[2017-09-16] MEDS: TEARS ARTIFICIAL 15 ML DROPS OP SCH (08:26)
== END 2017-09-16 09:24 | DRG 870 ==
LOC: SED 08:09 → SIC 11:55 → STU 09-06 20:50
PROVIDERS: ADMIT Family Medicine; ATTEND Family Medicine
PROC: 5A1955Z Respiratory Ventilation, Greater than 96 Consecutive Hours (ICD-10-PCS; principal; 2017-09-03)
PROC: 02HV33Z Insertion of Infusion Device into Superior Vena Cava, Percutaneous Approach (ICD-10-PCS; 2017-09-04)
PROC: B548ZZA Ultrasonography of Superior Vena Cava, Guidance (ICD-10-PCS; 2017-09-04)
PROC: 30233N1 Transfusion of Nonautologous Red Blood Cells into Peripheral Vein, Percutaneous Approach (ICD-10-PCS; 2017-09-05)
DX: A41.9 Sepsis, unspecified organism (principal); E43 Unspecified severe protein-calorie malnutrition; G82.50 Quadriplegia, unspecified; G83.5 Locked-in state; J15.6 Pneumonia due to other Gram-negative bacteria; N17.9 Acute kidney failure, unspecified; J96.11 Chronic respiratory failure with hypoxia; E27.1 Primary adrenocortical insufficiency; G12.21 Amyotrophic lateral sclerosis; B37.49 Other urogenital candidiasis; J96.10 Chronic respiratory failure, unspecified whether with hypoxia or hypercapnia; B96.89 Other specified bacterial agents as the cause of diseases classified elsewhere; D64.9 Anemia, unspecified; E86.0 Dehydration; E11.9 Type 2 diabetes mellitus without complications; F25.9 Schizoaffective disorder, unspecified; G70.00 Myasthenia gravis without (acute) exacerbation; I10 Essential (primary) hypertension; Z16.24 Resistance to multiple antibiotics; Z78.9 Other specified health status; Z93.0 Tracheostomy status; Z93.1 Gastrostomy status; Z68.20 Body mass index [BMI] 20.0-20.9, adult
CPT/HCPCS: 36415; 36600; 71045; 80048; 80053; 81000-TC; 82272; 82550-TC; 82607; 82746; 82803-TC; 82962; 83540-TC; 83550-TC; 83605; 83880; 84484; 85007; 85025; 85027; 85610-TC; 85730-TC; 86886; 86900; 86901; 86920; 87040-TC; 87070-TC; 87081; 87086; 87186-TC; 87205-TC; 93005; 94002; 94003; 94640; 94760; 99291; C1751; J1450; J1650; J1815; J1940; J1956; J2060; J2543; J3370; J3490; J7030; J7040; J7050; J7060; J7612; P9021